=== PATIENT | female | born 1945 | race Hispanic/Latino ===

== ENCOUNTER 2017-08-11 06:10 | Emergency (ER) | payer MEDICARE ==
[2017-08-11 07:27] LABS: BASOPHILS % (AUTO) 0.4 % (0.0-5.0); EOSINOPHILS % (AUTO) 1.1 % (0.0-8.0); HEMATOCRIT 30.3 % (36-48); LYMPHOCYTES % (AUTO) 10.9 % (21.0-51.0); MEAN CORPUSCULAR HGB CONC 33.1 g/dL (32.0-36.0); MEAN CORPUSCULAR VOLUME 93.6 fL (79-99); MONOCYTES % (AUTO) 6.7 % (3.0-13.0); NEUTROPHILS % (AUTO) 80.9 % (40.0-77.0); PLATELET COUNT (AUTO) 230 K/uL (130-400); RED BLOOD CELL COUNT(AUTO) 3.23 MIL/uL (4.00-5.50); RED CELL DISTRIBUTION WIDTH 15.2 % (11.0-15.5); WHITE BLOOD COUNT (AUTO) 10.2 K/uL (4.8-10.8)
[2017-08-11] MEDS ORDERED: DEXAMETHASONE 4 MG TAB ONE (07:58)
[2017-08-11] MEDS ORDERED: NITROGLYCERIN 0.4 MG SL TAB SL ONE (07:58)
[2017-08-11] MEDS ORDERED: ALBUTEROL SULFATE 0.083% 2.5 MG/3 ML INH IH ONE (08:05)
[2017-08-11 08:09] LABS: INR 1.01 (0.85-1.15); PARTIAL THROMBOPLASTIN TIME 27.8 SEC (26.3-35.5); PROTHROMBIN TIME 10.6 SEC (9.6-11.6)
[2017-08-11 08:13] LABS: B-TYPE NATRIURETIC PEPTIDE 1200 pg/mL (0-100)
[2017-08-11 08:45] LABS: ALANINE AMINOTRANSFERASE 12 U/L (12-78); ALBUMIN 3.6 g/dL (3.5-5.0); ASPARTATE AMINOTRANSFERASE 12 U/L (10-37); BILIRUBIN,TOTAL 0.9 mg/dL (0.2-1.0); CARBON DIOXIDE 30 mmol/L (21-32); CHLORIDE 101 mmol/L (101-111); CREATINE KINASE MB < 0.5 ng/mL (0.5-3.6); CREATINE KINASE, TOTAL 43 U/L (21-232); GLOMERULAR FILTR. RATE CALC 4 mL/min (>60); GLUCOSE,RANDOM 118 mg/dL (70-105); POTASSIUM 4.6 mmol/L (3.5-5.1); SODIUM SERUM 141 mmol/L (136-145); TOTAL PROTEIN, SERUM 7.1 g/dL (6.0-8.3); UREA NITROGEN, BLOOD 33 mg/dL (7-18)
[2017-08-11 08:52] LABS: CREATININE 9.8 mg/dL (0.5-1.5)
== END 2017-08-11 10:03 | disposition home or self-care (01) ==
LOC: EDH 06:10
DX: J45.901 Unspecified asthma with (acute) exacerbation (principal); I12.0 Hypertensive chronic kidney disease with stage 5 chronic kidney disease or end stage renal disease; E11.22 Type 2 diabetes mellitus with diabetic chronic kidney disease; N18.6 End stage renal disease; E87.70 Fluid overload, unspecified; Z99.2 Dependence on renal dialysis
CPT/HCPCS: 36415; 71045; 80053; 82550; 82553; 83880; 84484; 85025; 85610; 85730; 87804 ×2; 93005; 94640; 99285; J8540

== ENCOUNTER 2017-10-03 18:17 | Emergency (ER) | payer MEDICARE ==
[2017-10-03 19:36] LABS: BASOPHILS % (AUTO) 1.3 % (0.0-5.0); EOSINOPHILS % (AUTO) 4.7 % (0.0-8.0); LYMPHOCYTES % (AUTO) 19.9 % (21.0-51.0); MEAN CORPUSCULAR HEMOGLOBIN 30.5 pg (27.0-33.0); MEAN CORPUSCULAR HGB CONC 33.6 g/dL (32.0-36.0); MONOCYTES % (AUTO) 10.8 % (3.0-13.0); NEUTROPHILS % (AUTO) 63.3 % (40.0-77.0); PLATELET COUNT (AUTO) 240 K/uL (130-400); RED BLOOD CELL COUNT(AUTO) 4.18 MIL/uL (4.00-5.50); RED CELL DISTRIBUTION WIDTH 16.9 % (11.0-15.5); WHITE BLOOD COUNT (AUTO) 6.7 K/uL (4.8-10.8)
[2017-10-03 19:50] LABS: CREATININE 4.7 mg/dL (0.5-1.5); POTASSIUM 4.7 mmol/L (3.5-5.1)
[2017-10-03 19:51] LABS: INR 0.91 (0.85-1.15); PARTIAL THROMBOPLASTIN TIME 26.7 SEC (26.3-35.5); PROTHROMBIN TIME 9.6 SEC (9.6-11.6)
[2017-10-03 20:05] LABS: ALBUMIN 3.6 g/dL (3.5-5.0); BILIRUBIN,TOTAL 0.7 mg/dL (0.2-1.0); CREATINE KINASE MB 1.1 ng/mL (0.5-3.6); TOTAL PROTEIN, SERUM 7.7 g/dL (6.0-8.3)
== END 2017-10-03 22:25 | disposition home or self-care (01) ==
LOC: EDH 18:17
DX: R41.82 Altered mental status, unspecified (principal); R07.89 Other chest pain; R42 Dizziness and giddiness; G89.29 Other chronic pain; M54.2 Cervicalgia; J45.909 Unspecified asthma, uncomplicated; E11.9 Type 2 diabetes mellitus without complications; I10 Essential (primary) hypertension; Z90.710 Acquired absence of both cervix and uterus
CPT/HCPCS: 36415; 70450; 80053; 82550; 82553; 82948; 84484; 85025; 85610; 85730; 93005

== ENCOUNTER 2017-10-04 07:10 | Emergency (ER) | payer MEDICARE ==
[2017-10-04 08:02] LABS: BASOPHILS % (AUTO) 0.9 % (0.0-5.0); EOSINOPHILS % (AUTO) 4.5 % (0.0-8.0); HEMATOCRIT 38.3 % (36-48); LYMPHOCYTES % (AUTO) 23.3 % (21.0-51.0); MEAN CORPUSCULAR HEMOGLOBIN 30.4 pg (27.0-33.0); MEAN CORPUSCULAR HGB CONC 33.2 g/dL (32.0-36.0); MEAN CORPUSCULAR VOLUME 91.6 fL (79-99); MONOCYTES % (AUTO) 12.2 % (3.0-13.0); NEUTROPHILS % (AUTO) 59.1 % (40.0-77.0); NUCLEATED RED BLOOD CELLS 0.1 % (0.0-0.19); PLATELET COUNT (AUTO) 223 K/uL (130-400); RED BLOOD CELL COUNT(AUTO) 4.17 MIL/uL (4.00-5.50); RED CELL DISTRIBUTION WIDTH 16.9 % (11.0-15.5); WHITE BLOOD COUNT (AUTO) 7.4 K/uL (4.8-10.8)
[2017-10-04 08:13] LABS: CREATININE 6.2 mg/dL (0.5-1.5); POTASSIUM 5.5 mmol/L (3.5-5.1)
[2017-10-04 08:26] LABS: ALBUMIN 3.6 g/dL (3.5-5.0); BILIRUBIN,TOTAL 0.7 mg/dL (0.2-1.0); CREATINE KINASE MB 0.6 ng/mL (0.5-3.6); TOTAL PROTEIN, SERUM 7.5 g/dL (6.0-8.3)
[2017-10-04 09:23] LABS: INR 0.94 (0.85-1.15); PARTIAL THROMBOPLASTIN TIME 26.5 SEC (26.3-35.5); PROTHROMBIN TIME 9.9 SEC (9.6-11.6)
== END 2017-10-04 11:10 | disposition home or self-care (01) ==
LOC: EDH 07:10
DX: I12.0 Hypertensive chronic kidney disease with stage 5 chronic kidney disease or end stage renal disease (principal); E11.22 Type 2 diabetes mellitus with diabetic chronic kidney disease; N18.6 End stage renal disease; R20.2 Paresthesia of skin; J45.909 Unspecified asthma, uncomplicated; Z99.2 Dependence on renal dialysis; Z90.710 Acquired absence of both cervix and uterus
CPT/HCPCS: 36415; 80053; 82550; 82553; 84484; 85025; 85610; 85730; 93005

== ENCOUNTER 2018-07-11 07:58 | Emergency (ER) | payer MEDICARE ==
[2018-07-11] MEDS ORDERED: DEXAMETHASONE SOD PHOSPHATE 10MG/ML 1ML VIAL ONE (08:44)
[2018-07-11] MEDS ORDERED: ACETAMINOPHEN-CODEINE 300/30MG TAB ONE (08:45)
[2018-07-11 08:48] LABS: BASOPHILS % (AUTO) 1.4 % (0.0-5.0); HEMATOCRIT 33.5 % (36-48); LYMPHOCYTES % (AUTO) 25.1 % (21.0-51.0); MEAN CORPUSCULAR HEMOGLOBIN 30.9 pg (27.0-33.0); MEAN CORPUSCULAR HGB CONC 33.1 g/dL (32.0-36.0); MEAN CORPUSCULAR VOLUME 93.4 fL (79-99); NEUTROPHILS % (AUTO) 58.5 % (40.0-77.0); NUCLEATED RED BLOOD CELLS 0.1 % (0.0-0.19); PLATELET COUNT (AUTO) 204 K/uL (130-400); RED BLOOD CELL COUNT(AUTO) 3.58 MIL/uL (4.00-5.50); RED CELL DISTRIBUTION WIDTH 16.9 % (11.0-15.5); WHITE BLOOD COUNT (AUTO) 6.1 K/uL (4.8-10.8)
[2018-07-11 09:00] LABS: CREATININE 7.5 mg/dL (0.5-1.5); POTASSIUM 5.4 mmol/L (3.5-5.1)
[2018-07-11 09:09] LABS: ALBUMIN 3.6 g/dL (3.5-5.0); BILIRUBIN,TOTAL 0.5 mg/dL (0.2-1.0); TOTAL PROTEIN, SERUM 7.4 g/dL (6.0-8.3)
== END 2018-07-11 10:13 | disposition home or self-care (01) ==
LOC: EDH 07:58
DX: M62.838 Other muscle spasm (principal); M71.9 Bursopathy, unspecified; M25.511 Pain in right shoulder; M54.6 Pain in thoracic spine; J45.909 Unspecified asthma, uncomplicated; I11.0 Hypertensive heart disease with heart failure; I50.9 Heart failure, unspecified; E11.9 Type 2 diabetes mellitus without complications; Z90.710 Acquired absence of both cervix and uterus
CPT/HCPCS: 36415; 71045; 80053; 84484; 85025; 93005; 96372; 99284; J1100

== ENCOUNTER 2019-12-03 06:25 | Day surgery (SDC) | payer MEDICARE ==
[2019-11-30 11:29] LABS: BASOPHILS % (AUTO) 0.5 % (0.0-5.0); EOSINOPHILS % (AUTO) 2.2 % (0.0-8.0); HEMATOCRIT 35.4 % (36-48); LYMPHOCYTES % (AUTO) 19.3 % (21.0-51.0); MEAN CORPUSCULAR HEMOGLOBIN 31.9 pg (27.0-33.0); MEAN CORPUSCULAR HGB CONC 31.9 g/dL (32.0-36.0); MONOCYTES % (AUTO) 10.4 % (3.0-13.0); NEUTROPHILS % (AUTO) 67.3 % (40.0-77.0); PLATELET COUNT (AUTO) 228 K/uL (130-400); RED BLOOD CELL COUNT(AUTO) 3.54 MIL/uL (4.00-5.50); WHITE BLOOD COUNT (AUTO) 7.7 K/uL (4.8-10.8)
[2019-11-30 11:44] LABS: POTASSIUM 5.3 mmol/L (3.5-5.1)
[2019-11-30 12:19] LABS: CREATININE 8.1 mg/dL (0.5-1.5)
[2019-12-02 14:16] VITALS: BP 131/62
[~2019-12-03] VITALS: Ht 161.3 cm; Wt 88.3 kg
[2019-12-03] VITALS (19 sets, daily range): BP systolic 114–139; BP diastolic 59–72
[2019-12-03] MEDS: CEFAZOLIN SODIUM 1 GM VIAL IVP SCH ×2 (06:00→08:15)
[~2019-12-03 06:25] MED LIST: ALPR0.255 PO; AMLO5TAB9 PO; FLUT16H NASAL; FLUT1DIS4 IH; ICOS1CAP PO; LOSA100T58 PO; MEMA5TAB42 PO; METO50TA18 PO; MONT10TA26 PO; PREG50 PO; RANI300C PO; SEVE0.8P3 PO; SIMV-43 PO; TRAM50TA4 PO
[2019-12-03] MEDS ORDERED: SODIUM CHLORIDE 0.9% 1000ML 1,000 ML IV ONE (07:32)
--- NOTE | 2019-12-03 07:44 | NUR ---
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
[2019-12-03] MEDS ORDERED: PROPOFOL 10 MG/ML 20ML VIAL IV ONE (08:14)
[2019-12-03] MEDS ORDERED: DEXAMETHASONE SOD PHOSPHATE 10MG/ML 1ML VIAL ONE (08:14)
[2019-12-03] MEDS ORDERED: LIDOCAINE PF 2% 5ML ABBOJECT ONE (08:14)
[2019-12-03] MEDS ORDERED: ONDANSETRON HCL 4 MG/2 ML VIAL ONE (08:14)
[2019-12-03] MEDS ORDERED: MIDAZOLAM HCL 1 MG/ML 2ML VIAL ONE (08:14)
[2019-12-03] MEDS ORDERED: FENTANYL CITRATE PF 50 MCG/1 ML 2ML VIAL ONE (08:15)
[2019-12-03] MEDS ORDERED: ROCURONIUM 10MG/1ML SYR 10 MG/ML ML ONE (08:15)
[2019-12-03] MEDS ORDERED: EPHEDRINE SULFATE 50 MG/ML AMPULE ONE (08:34)
[2019-12-03] MEDS ORDERED: GLYCOPYRROLATE 1 MG/5 ML SYRINGE ONE (08:49)
[2019-12-03] MEDS ORDERED: NEOSTIGMINE 5MG/5ML SYR IV ONE (08:49)
[2019-12-03] MEDS ORDERED: MEPERIDINE-PF 25 MG/ML SYG ONE (09:23)
[2019-12-03] MEDS ORDERED: CEPH500B PO (09:25)
[2019-12-03] MEDS ORDERED: ACET1TAB12 PO (09:25)
== END 2019-12-03 11:05 | disposition home or self-care (01) ==
LOC: DAH 06:25
PROVIDERS: ATTEND Orthopaedic Surgery
DX: M23.221 Derangement of posterior horn of medial meniscus due to old tear or injury, right knee (principal); M94.261 Chondromalacia, right knee; M25.561 Pain in right knee; I13.2 Hypertensive heart and chronic kidney disease with heart failure and with stage 5 chronic kidney disease, or end stage renal disease; E11.22 Type 2 diabetes mellitus with diabetic chronic kidney disease; N18.6 End stage renal disease; I50.9 Heart failure, unspecified; E66.9 Obesity, unspecified; J44.9 Chronic obstructive pulmonary disease, unspecified; F41.8 Other specified anxiety disorders; F32.9 Major depressive disorder, single episode, unspecified; Z99.2 Dependence on renal dialysis; Z90.710 Acquired absence of both cervix and uterus; Z87.891 Personal history of nicotine dependence; Z79.899 Other long term (current) drug therapy; Z98.890 Other specified postprocedural states; Z68.33 Body mass index [BMI] 33.0-33.9, adult
CPT/HCPCS: 29881; 36415 ×2; 80048; 82948 ×2; 84132; 85025; A4213; A4215; A4221; A4222; A4223; A4606; A4649 ×2; A4663; A4930; A5120; A6223; J0690; J1100; J2001; J2175; J2250; J2405; J2704; J2710; J3010; J3490 ×2; J7030 ×2

== ENCOUNTER 2021-04-16 08:00 | Inpatient (IN) | payer MEDICARE ==
[~2021-04-16] VITALS: Ht 162.6 cm; Wt 88.6 kg
[~2021-04-16 08:00] MED LIST changes: +AMLO-257 PO; -AMLO5TAB9 PO; -FLUT16H NASAL; -ICOS1CAP PO; -LOSA100T58 PO; -MONT10TA26 PO; +MONT10TA32 PO; -PREG50 PO; -RANI300C PO; -SEVE0.8P3 PO
[2021-04-16 12:16] LABS: EOSINOPHILS % (AUTO) 2.5 % (0.0-8.0); HEMATOCRIT 34.6 % (36-48); LYMPHOCYTES % (AUTO) 16.6 % (21.0-51.0); MEAN CORPUSCULAR HEMOGLOBIN 31.1 pg (27.0-33.0); MEAN CORPUSCULAR HGB CONC 30.6 g/dL (32.0-36.0); MEAN CORPUSCULAR VOLUME 101.5 fL (79-99); MONOCYTES % (AUTO) 10.3 % (3.0-13.0); NEUTROPHILS % (AUTO) 69.2 % (40.0-77.0); PLATELET COUNT (AUTO) 221 K/uL (130-400); RED BLOOD CELL COUNT(AUTO) 3.41 MIL/uL (4.00-5.50); RED CELL DISTRIBUTION WIDTH 13.8 % (11.0-15.5); WHITE BLOOD COUNT (AUTO) 4.9 K/uL (4.8-10.8)
[2021-04-16 12:31] LABS: INR 1.04 (0.85-1.15); PROTHROMBIN TIME 11.3 SEC (9.6-11.6)
[2021-04-16 12:41] LABS: POTASSIUM 4.2 mmol/L (3.5-5.1)
[2021-04-17 13:03] VITALS: BP 187/64
[2021-04-17] MEDS ORDERED: GABA-529 PO (15:49)
[2021-04-17] MEDS ORDERED: LABE200T5 PO (15:49)
[2021-04-17] MEDS ORDERED: CIPR7.5D OT (15:49)
[2021-04-17] MEDS ORDERED: METO50TA18 PO (15:49)
[2021-04-17] MEDS ORDERED: CLON0.1T PO (15:49)
[2021-04-17] MEDS ORDERED: MUPI22OI2 TP (15:49)
[2021-04-17] MEDS ORDERED: FAMO20TA8 PO (15:49)
[2021-04-18] VITALS (39 sets, daily range): BP systolic 132–173; BP diastolic 63–106
[2021-04-18] MEDS ORDERED: CEFAZOLIN SODIUM 1 GM VIAL IVP SCH (06:00)
[2021-04-18 08:39] LABS: POTASSIUM 5.3 mmol/L (3.5-5.1)
[2021-04-18] MEDS ORDERED: 0.9% NACL 500ML IV.SOLN 500 ML IV ONE (08:44)
[2021-04-18 08:48] LABS: CREATININE 9.5 mg/dL (0.5-1.5)
[2021-04-18] MEDS ORDERED: CEPH500C2 PO (08:55)
[2021-04-18] MEDS ORDERED: SEVE800T27 PO (08:55)
[2021-04-18] MEDS ORDERED: SUCR500T PO (08:55)
[2021-04-18] MEDS ORDERED: CETI10TA57 PO (08:55)
[2021-04-18] MEDS ORDERED: folic acid PO (08:55)
[2021-04-18] MEDS ORDERED: DEXAMETHASONE SOD PHOSPHATE 10MG/ML 1ML VIAL ONE (12:36)
[2021-04-18] MEDS ORDERED: SUCCINYLCHOLINE CHLORIDE 20 MG/ML 10 ML VIAL ONE (12:36)
[2021-04-18] MEDS ORDERED: PROPOFOL 10 MG/ML 20ML VIAL IV ONE (12:36)
[2021-04-18] MEDS ORDERED: LIDOCAINE PF 100MG/5ML (2%) SYRINGE 5ML ONE (12:36)
[2021-04-18] MEDS ORDERED: GLYCOPYRROLATE 1 MG/5 ML SYRINGE ONE (12:36)
[2021-04-18] MEDS ORDERED: ONDANSETRON 4MG INJ ONE (12:37)
[2021-04-18] MEDS ORDERED: MIDAZOLAM HCL 1 MG/ML 2ML VIAL ONE (12:37)
[2021-04-18] MEDS ORDERED: CEFAZOLIN SODIUM 1 GM VIAL ONE ×2 (12:37→13:18)
[2021-04-18] MEDS ORDERED: ROCURONIUM 10MG/1ML SYR 10 MG/ML ML ONE ×2 (12:37→13:45)
[2021-04-18] MEDS ORDERED: NEOSTIGMINE 5MG/5ML SYR IV ONE (12:37)
[2021-04-18] MEDS ORDERED: FENTANYL CITRATE PF 50 MCG/1 ML 2ML VIAL ONE (12:40)
[2021-04-18] MEDS ORDERED: CEFAZOLIN SODIUM 1 GM VIAL IRRIG ONE (13:50)
[2021-04-18] MEDS ORDERED: POTASSIUM CHLORIDE 10% ELIXIR 20 MEQ/15 ML UDCUP PO PRN (16:00)
[2021-04-18] MEDS ORDERED: 0.9%NACL 1000ML 1,000 ML IV SCH (16:00)
[2021-04-18] MEDS ORDERED: POTASSIUM CHLORIDE 20MEQ/100ML 100 ML IV PRN (16:00)
[2021-04-18] MEDS ORDERED: ONDANSETRON 4MG INJ IVP PRN (16:00)
[2021-04-18] MEDS ORDERED: FERROUS FUMARATE 324 MG TABLET PO PRN (16:00)
[2021-04-18] MEDS: ACETAMINOPHEN 500 MG TABLET PO SCH (16:00)
[2021-04-18] MEDS ORDERED: LIDOCAINE HCL-MPF 1% 2ML VIAL IV PRN (16:00)
[2021-04-18] MEDS: CEFAZOLIN SODIUM 1 GM VIAL IVP SCH (16:00)
[2021-04-18] MEDS ORDERED: DiphenhydrAMINE HCL 50 MG/ML VIAL IVP PRN (16:00)
[2021-04-18] MEDS ORDERED: CALCIUM CARB 500MG PO PRN (16:00)
[2021-04-18] MEDS ORDERED: TEMAZEPAM 15 MG CAPSULE PO PRN (16:00)
[2021-04-18] MEDS ORDERED: KCL 20 MEQ ERTAB PO PRN (16:00)
[2021-04-18] MEDS ORDERED: SUGAMMADEX SODIUM 200 MG/2 ML VIAL IV ONE (16:10)
[2021-04-18] MEDS: INSULIN HUMULIN R 100 UNIT/ML 3ML SQ SCH ×2 (16:30→21:00)
[2021-04-18] MEDS ORDERED: MEPERIDINE-PF 25 MG/ML SYG ONE (16:42)
[2021-04-18] MEDS: OXYCODONE HCL 5 MG TAB PO PRN ×2 (18:15→20:09)
[2021-04-18] MEDS ORDERED: ALPRAZOLAM 0.25 MG TABLET PO PRN (19:30)
[2021-04-18] MEDS ORDERED: TRAMADOL HCL 50 MG TABLET PO PRN (19:30)
[2021-04-18] MEDS ORDERED: 0.9%NACL 1000ML 1,000 ML IV PRN (20:00)
[2021-04-18] MEDS: FAMOTIDINE 20MG TAB PO SCH (21:00)
[2021-04-18] MEDS: MUPIROCIN OINTMENT 22 GM TUBE TP SCH (21:00)
[2021-04-18] MEDS: CEPHALEXIN 500 MG CAPSULE PO SCH (21:00)
[2021-04-18] MEDS: PHARMACY COMMUNICATION MISC SCH (22:30)
[2021-04-19] VITALS (7 sets, daily range): BP systolic 113–152; BP diastolic 39–70
[2021-04-19] MEDS: OXYCODONE HCL 5 MG TAB PO PRN ×4 (00:23→14:50)
[2021-04-19] MEDS: ACETAMINOPHEN 500 MG TABLET PO SCH ×4 (00:23→23:33)
[2021-04-19] MEDS: CLONIDINE HCL 0.1 MG TABLET PO SCH ×5 (00:24→23:36)
[2021-04-19] MEDS: FAMOTIDINE 20MG TAB PO SCH ×4 (00:24→19:57)
[2021-04-19] MEDS: METOPROLOL TARTRATE 50 MG TAB PO SCH ×4 (00:24→23:33)
[2021-04-19] MEDS: LABETALOL HCL 200 MG TABLET PO SCH ×5 (00:24→23:33)
[2021-04-19] MEDS: MEMANTINE HCL 5 MG TABLET PO SCH ×3 (00:24→19:56)
[2021-04-19] MEDS: SIMVASTATIN 20 MG TABLET PO SCH ×2 (00:24→19:56)
[2021-04-19] MEDS: GABAPENTIN 100 MG CAPSULE PO SCH ×2 (00:25→19:56)
[2021-04-19] MEDS: PHARMACY COMMUNICATION MISC SCH ×4 (00:30→05:11)
[2021-04-19] MEDS: TRAMADOL HCL 50 MG TABLET PO PRN (02:01)
[2021-04-19] MEDS: CEFAZOLIN SODIUM 1 GM VIAL IVP SCH (04:13)
[2021-04-19 04:58] LABS: BASOPHILS % (AUTO) 0.6 % (0.0-5.0); EOSINOPHILS % (AUTO) 2.5 % (0.0-8.0); HEMATOCRIT 29.1 % (36-48); LYMPHOCYTES % (AUTO) 8.3 % (21.0-51.0); MEAN CORPUSCULAR HEMOGLOBIN 30.9 pg (27.0-33.0); MEAN CORPUSCULAR HGB CONC 30.6 g/dL (32.0-36.0); MONOCYTES % (AUTO) 11.8 % (3.0-13.0); NEUTROPHILS % (AUTO) 76.1 % (40.0-77.0); PLATELET COUNT (AUTO) 183 K/uL (130-400); RED BLOOD CELL COUNT(AUTO) 2.88 MIL/uL (4.00-5.50); RED CELL DISTRIBUTION WIDTH 14.1 % (11.0-15.5); WHITE BLOOD COUNT (AUTO) 7.2 K/uL (4.8-10.8)
[2021-04-19 05:26] LABS: ALBUMIN 3.4 g/dL (3.5-5.0); BILIRUBIN,TOTAL 0.7 mg/dL (0.2-1.0); CREATININE 6.4 mg/dL (0.5-1.5); POTASSIUM 5.2 mmol/L (3.5-5.1); TOTAL PROTEIN, SERUM 6.6 g/dL (6.0-8.3)
[2021-04-19] MEDS: INSULIN HUMULIN R 100 UNIT/ML 3ML SQ SCH ×4 (05:47→20:55)
[2021-04-19] MEDS: SEVELAMER HCL 800 MG TABLET PO SCH ×3 (07:41→16:37)
[2021-04-19] MEDS: Sucroferric Oxyhydroxide (Velphoro) 1,000 MG PO SCH ×3 (08:00→16:37)
[2021-04-19] MEDS ORDERED: SALMETEROL IH SCH (09:00)
[2021-04-19] MEDS: AMLODIPINE 5 MG TAB PO SCH ×2 (09:00→10:00)
[2021-04-19] MEDS ORDERED: FLUTICASONE IH SCH (09:00)
[2021-04-19] MEDS ORDERED: FLUT1BLS12 NASAL (09:17)
[2021-04-19] MEDS: ASPIRIN 81 MG EC TAB PO SCH ×2 (09:59→19:56)
[2021-04-19] MEDS: CEPHALEXIN 500 MG CAPSULE PO SCH ×2 (09:59→19:57)
[2021-04-19] MEDS: CETIRIZINE HCL 5 MG TABLET PO SCH (09:59)
[2021-04-19] MEDS: MUPIROCIN OINTMENT 22 GM TUBE TP SCH ×2 (10:00→21:00)
[2021-04-19] MEDS: FOLIC ACID 1 MG TABLET PO SCH (10:00)
[2021-04-19] MEDS: POLYETHYLENE GLYCOL 3350 17 GM POWD.PACK PO SCH (10:00)
[2021-04-19] MEDS: FLUTICASONE/VILANTEROL 1 EACH AER.POW.BA IH SCH (20:04)
[2021-04-20] VITALS (16 sets, daily range): BP systolic 100–138; BP diastolic 40–75
[2021-04-20] MEDS: INSULIN HUMULIN R 100 UNIT/ML 3ML SQ SCH ×3 (06:00→16:30)
[2021-04-20] MEDS: Sucroferric Oxyhydroxide (Velphoro) 1,000 MG PO SCH ×3 (08:00→17:00)
[2021-04-20] MEDS: SEVELAMER HCL 800 MG TABLET PO SCH ×3 (08:25→17:00)
[2021-04-20] MEDS: CETIRIZINE HCL 5 MG TABLET PO SCH (08:25)
[2021-04-20] MEDS: FOLIC ACID 1 MG TABLET PO SCH (08:26)
[2021-04-20] MEDS: FAMOTIDINE 20MG TAB PO SCH (08:26)
[2021-04-20] MEDS: CEPHALEXIN 500 MG CAPSULE PO SCH (08:26)
[2021-04-20] MEDS: MEMANTINE HCL 5 MG TABLET PO SCH (08:27)
[2021-04-20] MEDS: ACETAMINOPHEN 500 MG TABLET PO SCH ×2 (08:28→16:00)
[2021-04-20] MEDS: POLYETHYLENE GLYCOL 3350 17 GM POWD.PACK PO SCH (08:30)
[2021-04-20] MEDS: FLUTICASONE/VILANTEROL 1 EACH AER.POW.BA IH SCH (08:33)
[2021-04-20] MEDS: MUPIROCIN OINTMENT 22 GM TUBE TP SCH (08:34)
[2021-04-20] MEDS: LABETALOL HCL 200 MG TABLET PO SCH ×2 (09:00→14:00)
[2021-04-20] MEDS: ASPIRIN 81 MG EC TAB PO SCH (09:00)
[2021-04-20] MEDS: CLONIDINE HCL 0.1 MG TABLET PO SCH ×2 (09:00→14:00)
[2021-04-20] MEDS: METOPROLOL TARTRATE 50 MG TAB PO SCH (09:00)
[2021-04-20] MEDS: TRAMADOL HCL 50 MG TABLET PO PRN (14:22)
[2021-04-20] MEDS: AMLODIPINE 5 MG TAB PO SCH (17:33)
[2021-04-20] MEDS ORDERED: AEC81 PO (17:34)
[2021-04-20] MEDS ORDERED: HYDR-4060 PO (17:34)
[2021-04-21] MEDS ORDERED: BISACODYL 10 MG SUPP.RECT RC PRN (16:00)
== END 2021-04-20 20:45 | disposition home health service (06) | DRG 469 ==
LOC: EDSTATUS 08:00 → OBSVTOIN 04-18 08:04 → DAHIP 04-18 08:04 → 3DH 04-18 17:23
PROVIDERS: ADMIT Orthopaedic Surgery; ATTEND Orthopaedic Surgery
PROC: 3E0T3BZ Introduction of Anesthetic Agent into Peripheral Nerves and Plexi, Percutaneous Approach (ICD-10-PCS; 2021-04-18)
PROC: 3E0T33Z Introduction of Anti-inflammatory into Peripheral Nerves and Plexi, Percutaneous Approach (ICD-10-PCS; 2021-04-18)
PROC: 5A1D70Z Performance of Urinary Filtration, Intermittent, Less than 6 Hours Per Day (ICD-10-PCS; 2021-04-18)
PROC: 0SRC0J9 Replacement of Right Knee Joint with Synthetic Substitute, Cemented, Open Approach (ICD-10-PCS; principal; 2021-04-18 13:03)
PROC: 5A1D70Z Performance of Urinary Filtration, Intermittent, Less than 6 Hours Per Day (ICD-10-PCS; 2021-04-20)
DX: M17.11 Unilateral primary osteoarthritis, right knee (principal); N18.6 End stage renal disease; I13.2 Hypertensive heart and chronic kidney disease with heart failure and with stage 5 chronic kidney disease, or end stage renal disease; L02.411 Cutaneous abscess of right axilla; Z20.822 Contact with and (suspected) exposure to COVID-19; E87.70 Fluid overload, unspecified; M24.561 Contracture, right knee; J44.9 Chronic obstructive pulmonary disease, unspecified; E87.5 Hyperkalemia; E11.22 Type 2 diabetes mellitus with diabetic chronic kidney disease; D64.9 Anemia, unspecified; E78.5 Hyperlipidemia, unspecified; I50.9 Heart failure, unspecified; E11.51 Type 2 diabetes mellitus with diabetic peripheral angiopathy without gangrene; I25.10 Atherosclerotic heart disease of native coronary artery without angina pectoris; L72.3 Sebaceous cyst; F41.9 Anxiety disorder, unspecified; G89.29 Other chronic pain; F32.9 Major depressive disorder, single episode, unspecified; E78.00 Pure hypercholesterolemia, unspecified; Z90.710 Acquired absence of both cervix and uterus; Z90.721 Acquired absence of ovaries, unilateral; Z99.2 Dependence on renal dialysis; Z99.89 Dependence on other enabling machines and devices; Z87.19 Personal history of other diseases of the digestive system; Z82.49 Family history of ischemic heart disease and other diseases of the circulatory system
CPT/HCPCS: 36415; 80048; 80053; 82948; 84132; 85025; 85610; 86850; 86900; 86901; 87635; 87641; 90935; 97039; G0378; J0330; J0690; J1100; J2001; J2175; J2250; J2405; J2704; J2710; J3010; J3490; J7040; J7120

== ENCOUNTER 2023-12-17 06:07 | Day surgery (SDC) | payer OTHER, MEDICARE ==
[2023-12-16 12:32] LABS: BASOPHILS # (AUTO) 0.07 K/uL (0.00-0.20); EOSINOPHILS # (AUTO) 0.45 K/uL (0.00-0.70); EOSINOPHILS % (AUTO) 6.4 % (0.0-8.0); HEMATOCRIT 38.1 % (36-48); IMMATURE GRANULOCYTE ABSOLUTE 0.02 K/uL (0-1); LYMPHOCYTES # (AUTO) 1.1 K/uL (1.0-4.8); LYMPHOCYTES % (AUTO) 15.5 % (21.0-51.0); MEAN CORPUSCULAR HEMOGLOBIN 31.3 pg (27.0-33.0); MEAN CORPUSCULAR VOLUME 101.1 fL (79-99); MONOCYTES # (AUTO) 0.6 K/uL (0.1-1.0); NEUTROPHILS # (AUTO) 4.8 K/uL (1.8-7.7); NEUTROPHILS % (AUTO) 67.8 % (40.0-77.0); PLATELET COUNT (AUTO) 262 K/uL (130-400); RED BLOOD CELL COUNT(AUTO) 3.77 MIL/uL (4.00-5.50); RED CELL DISTRIBUTION WIDTH 15.2 % (11.0-15.5)
[2023-12-16 12:42] LABS: INR 0.95 (0.85-1.15); PROTHROMBIN TIME 11.3 SEC (9.6-11.6)
[2023-12-16 12:43] LABS: PARTIAL THROMBOPLASTIN TIME 30.2 SEC (26.3-35.5)
[2023-12-16 12:48] LABS: CREATININE 6.7 mg/dL (0.5-1.0); POTASSIUM 3.6 mmol/L (3.5-5.1)
[2023-12-16 13:03] VITALS: BP 152/62; PULSE 101; RESP 17
[2023-12-17] VITALS (10 sets, daily range): BP systolic 96–143; BP diastolic 48–60; PULSE 88–101; RESP 16–19
[~2023-12-17] VITALS: Ht 162.6 cm; Wt 79.9 kg
[~2023-12-17 06:07] MED LIST changes: +AEC81 PO; +CINA30TA5 PO; +FLUT1BLS12 NASAL; -FLUT1DIS4 IH; +FOLI0.8T43 PO; +GABA-529 PO; +LOSA100T59 PO; +MEMA5TAB16 PO; -MEMA5TAB42 PO; -METO50TA18 PO; -MONT10TA32 PO; +PANT40TA54 PO; +SERT-438 PO; +SEVE800T27 PO; +SUCR500T PO; +SULF500T8 PO
[2023-12-17] MEDS ORDERED: LIDOCAINE HCL 2% VISCOUS 15 ML UDCUP ONE (07:23)
[2023-12-17] MEDS ORDERED: MIDAZOLAM HCL 1 MG/ML 2ML VIAL ONE (07:24)
[2023-12-17] MEDS ORDERED: FENTANYL CITRATE PF 50 MCG/1 ML 2ML VIAL ONE (07:24)
[2023-12-17] MEDS ORDERED: FENTANYL CITRATE PF 50 MCG/1 ML 2ML VIAL IVP ONE (07:30)
[2023-12-17] MEDS ORDERED: MIDAZOLAM HCL 1 MG/ML 2ML VIAL IVP ONE (07:30)
[2023-12-17] MEDS ORDERED: LIDOCAINE HCL 2% VISCOUS 15 ML UDCUP PO ONE (07:30)
[2023-12-17] MEDS: 0.9%NACL 1000ML 1,000 ML IV ONE (08:43)
[2023-12-31] MEDS ORDERED: ACET-66 PO (05:22)
== END 2023-12-17 09:11 | disposition home or self-care (01) ==
LOC: DAH 06:07
PROVIDERS: ATTEND Internal Medicine
DX: I08.0 Rheumatic disorders of both mitral and aortic valves (principal); R47.81 Slurred speech; I70.0 Atherosclerosis of aorta; I42.9 Cardiomyopathy, unspecified; F41.9 Anxiety disorder, unspecified; F32.A Depression, unspecified; E11.22 Type 2 diabetes mellitus with diabetic chronic kidney disease; I13.2 Hypertensive heart and chronic kidney disease with heart failure and with stage 5 chronic kidney disease, or end stage renal disease; I50.9 Heart failure, unspecified; N18.6 End stage renal disease; Z90.710 Acquired absence of both cervix and uterus; Z98.890 Other specified postprocedural states; Z79.01 Long term (current) use of anticoagulants; Z79.899 Other long term (current) drug therapy; Z82.49 Family history of ischemic heart disease and other diseases of the circulatory system; Z99.2 Dependence on renal dialysis
CPT/HCPCS: 80048; 85025; 85610; 85730; 36415; 93005; 93312; 82948; 93325; J3010; J7030; J2250; A4615; A4215; A4657; A4222; A4221; A4663; A4216; A4606; A4223 ×3; 99153